=== PATIENT | female | born 1995 | race Caucasian/White ===

== ENCOUNTER 2019-06-19 21:31 | Emergency (ER) | payer OTHER ==
[~2019-06-19] VITALS: Ht 160 cm; Wt 84.5 kg
[2019-06-19 21:44] VITALS: Ht 160 cm; Wt 84.5 kg
[2019-06-19 22:16] VITALS: BP 141/71
== END 2019-06-19 22:16 | disposition home or self-care (01) ==
LOC: ED 21:31
DX: R21 Rash and other nonspecific skin eruption (principal); L98.9 Disorder of the skin and subcutaneous tissue, unspecified